=== PATIENT | male | born 1945 | race Caucasian/White ===

== ENCOUNTER → 2020-12-28 | Outpatient (CLI) | payer MEDICARE | LOC: M.MRI 12-22 15:12 → M.RAD 12-27 09:40 → M.MRI 07:39 | PROVIDERS: ATTEND Internal Medicine | DX: M19.072 Primary osteoarthritis, left ankle and foot (principal); M19.071 Primary osteoarthritis, right ankle and foot; M51.37 Other intervertebral disc degeneration, lumbosacral region; R41.3 Other amnesia; F01.50 Vascular dementia, unspecified severity, without behavioral disturbance, psychotic disturbance, mood disturbance, and anxiety; M79.671 Pain in right foot; M79.672 Pain in left foot; M54.5 Low back pain; G89.29 Other chronic pain; R05 Cough; M25.571 Pain in right ankle and joints of right foot; M25.572 Pain in left ankle and joints of left foot ==